=== PATIENT | female | born 1980 | race Two or more races ===

== ENCOUNTER 2018-12-03 20:36 | Emergency (ER) | payer OTHER ==
[~2018-12-03] VITALS: Ht 167.6 cm; Wt 55.0 kg
[2018-12-03] MEDS ORDERED: IBUPROFEN 600MG TABLET PO STA (22:47)
[2018-12-04 01:04] VITALS: BP 126/81
== END 2018-12-04 01:05 | disposition home or self-care (01) ==
LOC: ER 20:36
DX: S00.93XA Contusion of unspecified part of head, initial encounter (principal); T14.8XXA Other injury of unspecified body region, initial encounter; V03.90XA Pedestrian on foot injured in collision with car, pick-up truck or van, unspecified whether traffic or nontraffic accident, initial encounter; Y93.01 Activity, walking, marching and hiking; Y92.410 Unspecified street and highway as the place of occurrence of the external cause
CPT/HCPCS: 70450; 71045; 72125; 72170; 73030; 73560; 81025; 99284; Z7610